=== PATIENT | male | born 1980 ===

== ENCOUNTER 2017-09-29 10:24 | Outpatient (CLI) | payer OTHER | END 2017-09-29 10:27 | disposition home or self-care (01) | LOC: LAB 10:24 | DX: R07.0 Pain in throat (principal) ==

== ENCOUNTER → 2017-11-09 | Emergency (ER) | payer OTHER ==
[~2017-11-09] VITALS: Ht 182.9 cm; Wt 94.8 kg
[~2017-11-09] MED LIST: AMOX-CLAV 500-1 EACH PO; KETO10TA2 PO; PANADOL EXTRA500 MG
== END | disposition home or self-care (01) ==
LOC: ER 17:56
DX: J03.90 Acute tonsillitis, unspecified (principal); J06.9 Acute upper respiratory infection, unspecified